=== PATIENT | female | born 2000 | race Hispanic/Latino ===

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

== ENCOUNTER 2024-09-28 23:14 | Emergency (ER) | payer BC, MEDICAID ==
[~2024-09-28] VITALS: Ht 149.9 cm; Wt 90.3 kg
[~2024-09-28 23:14] MED LIST: IBUP-1492 PO; PREN-196 PO
--- NOTE | 2024-09-28 23:28 | NUR ---
PT CARE ASSUMED AT THIS TIME
[2024-09-29 00:34] LABS: APPEARANCE,URINE CLEAR (CLEAR); GLUCOSE, URINE (UA) NEGATIVE (NEGATIVE); LEUKOCYTE ESTERASE ,URINE NEGATIVE Leu/uL (NEGATIVE); NITRATE,URINE NEGATIVE (NEGATIVE); OCCULT BLOOD,URINE MODERATE (NEGATIVE)
[2024-09-29 00:36] LABS: ADD UA MICROSCOPIC YES
[2024-09-29 00:37] LABS: HCG,QUALITATIVE URINE NEGATIVE (NEGATIVE)
[2024-09-29 00:43] LABS: CREATININE 0.7 mg/dL (0.5-1.0); GLOMERULAR FILTR. RATE CALC 122.0 mL/min (>90); GLUCOSE,RANDOM 109.0 mg/dL (70-105); SODIUM SERUM 142.0 mmol/L (136-145); UREA NITROGEN, BLOOD 14.0 mg/dL (7-18)
[2024-09-29 00:46] LABS: IMMATURE GRANULOCYTE ABSOLUTE 0.03 K/uL (0-1); NUCLEATED RED BLOOD CELLS 0.0 % (0.0-0.19); PLATELET COUNT (AUTO) 282 K/uL (130-400); RED BLOOD CELL COUNT(AUTO) 4.10 MIL/uL (4.00-5.50); RED CELL DISTRIBUTION WIDTH 13.1 % (11.0-15.5); SQUAMOUS EPITHELIAL CELL,UR FEW /HPF (0-2); WHITE BLOOD COUNT (AUTO) 10.8 K/uL (4.8-10.8)
[2024-09-29] MEDS: 0.9%NACL 1000ML 1,000 ML IV ONE (01:18)
--- NOTE | 2024-09-29 01:51 | ERN ---
ED Note History of Present Illness Stated Complaint: C/O LEFT FLANK PAIN Chief Complaint: Flank Pain Time Seen by MD: 23:20 Time Seen by Midlevel: 23:20 Dictation: The patient is a 24-year-old female with past medical history of cholecystectomy who presents to the emergency department with complaints of left flank pain. Patient reports that she was seen at [facility] onset Saturday and was diagnosed with a urinary tract infection and kidney stones. Patient reports that her pain is intermediate. Denies any fevers, vomiting or diarrhea Allergies: Coded Allergies: No Allergy Information Available (Verified Allergy, Unknown, 06/06/22) No Known Drug Allergies (Unverified Allergy, Unknown, 06/06/22) Home Meds Reported Medications Ibuprofen (Ibuprofen) 600 Mg Tablet, 600 MG PO Q6H PRN for PAIN, TAB 12/08/21 Vit No.124/Iron/FA ( Vitamin Tablet) 1 Each Tablet, 1 EACH PO DAILY, TAB 12/06/21 Past Medical History Past Medical History: No Pertinent History Surgical History: Unknown RN Note Reviewed/Agreed w/PFSH: Yes Review of System Dictation Constitutional: Negative for fever,chills, and weight loss Eyes: Negative for injury, pain,redness, and discharge ENT: Negative for injury,pain or swelling Cardiovascular: Negative for chest pain, palpitations, and edema Respiratory: Negative for shortness of breath, cough, and wheezing, Abdomen/GI: Negative for abdominal pain, nausea, vomiting, diarrhea, and constipation Back: Negative for injury and pain : Positive for left flank pain MS/Extremity: Negative for injury and deformity Skin: Negative for rash, and discoloration Neuro: Negative for headache, weakness, numbness, tingling, and seizure Psych: Negative for suicide ideation, homicidal ideation, and hallucinations Initial Vital Sign VS Vital Signs Date Time Temp Pulse Resp B/P (MAP) Pulse Ox O2 Delivery O2 Flow Rate FiO2 09/28/24 23:17 98.2 78 20 136/92 99 Room Air 09/28/24 23:28 0 21 Physical Exam Dictation Vital Signs reviewed General Appearance: Alert, oriented x 3, no acute distress, well developed, nourished. Head and Face: non-traumatic. Eyes: PERRL, pink conjunctivas, eyelid no trauma, anterior chamber with arcus senilis. Ears: Pinnas intact and no signs of trauma or erythema ear canals clear and no discharge TM no erythema Nose: No discharge, no bleeding. Oropharynx: Mouth normal, tongue pink. pharynx clear,no erythema, tonsils no exudates, no abscesses noted, mucous membrane moist Neck: Supple, non-tender, no thyromegaly, no masses, no JVD, no bruits Breast:Deferred Chest:No tenderness, no crepitus, no paradoxical movement, no retractions Lungs:Clear, well-ventilated, symmetric, no rales, no wheezing, no rhonchi, no stridor, good breath sounds bilaterally Heart: Regular rate, regular rhythm, no murmur, no gallops Vascular: no peripheral edema, Abdomen: Soft, positive bowel sounds, nondistended, no guarding, nontender, no rebound, no masses no hepatomegaly, no splenomegaly, no Barbosa's sign, no hernias. Rectal: Deferred Genital: Deferred Neurological: Normal speech, motor function intact, sensory function intact Musculoskeletal: Neck nontender, full range of motion, back nontender, full range of motion, Extremities: nontender, full range of motion Skin: Color pink, dry, no turgor, no rash, no lacerations, no abrasions, no contusions. Lymphatic: Deferred Results (Laboratory/Radiology) Laboratory/Radiology Laboratory Tests Test 09/29/24 00:23 White Blood Count 10.8 K/uL (4.8-10.8) Red Blood Count 4.10 MIL/uL (4.00-5.50) Hemoglobin 11.6 g/dL (12.0-16.0) L Hematocrit 36.2 % (36-48) Mean Corpuscular Volume 88.3 fL (79-99) Mean Corpuscular Hemoglobin 28.3 pg (27.0-33.0) Mean Corpuscular Hemoglobin Concent 32.0 g/dL (32.0-36.0) Red Cell Distribution Width 13.1 % (11.0-15.5) Platelet Count 282 K/uL (130-400) Mean Platelet Volume 9.7 fL (7.5-10.5) Immature Granulocyte % (Auto) 0.3 % (0-1) Neutrophils (%) (Auto) 65.0 % (40.0-77.0) Lymphocytes (%) (Auto) 26.7 % (21.0-51.0) Monocytes (%) (Auto) 5.7 % (3.0-13.0) Eosinophils (%) (Auto) 1.8 % (0.0-8.0) Basophils (%) (Auto) 0.5 % (0.0-5.0) Neutrophils # (Auto) 7.0 K/uL (1.8-7.7) Lymphocytes # (Auto) 2.9 K/uL (1.0-4.8) Monocytes # (Auto) 0.6 K/uL (0.1-1.0) Eosinophils # (Auto) 0.19 K/uL (0.00-0.70) Basophils # (Auto) 0.05 K/uL (0.00-0.20) Absolute Immature Granulocyte (auto 0.03 K/uL (0-1) Nucleated Red Blood Cells 0.0 % (0.0-0.19) Urine Color LIGHT-YELLOW (YELLOW) Urine Appearance CLEAR (CLEAR) Urine pH 6.0 (5.0-8.0) Urine Specific Driscoll 1.026 (1.001-1.031) Urine Protein NEGATIVE mg/dL (NEGATIVE) Urine Glucose (UA) NEGATIVE mg/dL (NEGATIVE) Urine Ketones NEGATIVE mg/dL (NEGATIVE) Urine Occult Blood MODERATE (NEGATIVE) H Urine Nitrate NEGATIVE (NEGATIVE) Urine Bilirubin NEGATIVE mg/dL (NEGATIVE) Urine Urobilinogen 0.2 mg/dL (0.2-1.0) Urine Leukocyte Esterase NEGATIVE Chau/uL Urine RBC TNTC /HPF (0-1) H Urine WBC 2-5 /HPF (0-1) H Urine Squamous Epithelial Cells FEW /HPF (0-2) Urine Bacteria FEW /HPF (None Seen) Urine HCG, Qualitative NEGATIVE (NEGATIVE) Sodium Level 142 mmol/L (136-145) Potassium Level 3.8 mmol/L (3.5-5.1) Chloride Level 107 mmol/L (101-111) Carbon Dioxide Level 26 mmol/L (21-32) Blood Urea Nitrogen 14 mg/dL (7-18) Creatinine 0.7 mg/dL (0.5-1.0) Glomerular Filtration Rate Calc 122 mL/min (>90) Random Glucose 109 mg/dL (70-105) H Total Calcium 8.4 mg/dL (8.5-10.1) L REASON: left flank pain ORDERING PHYSICIAN: JADA ALCAZAR PROCEDURE: RENAL - US RENAL SONOGRAM EXAM: Ultrasound Retroperitoneum CLINICAL HISTORY: Left flank pain TECHNIQUE: Real-time ultrasound of the retroperitoneum with image documentation. COMPARISON: None provided. FINDINGS: RIGHT KIDNEY: The right kidney measures 10.1 x 4.8 x 4.5 cm Normal echogenicity and renal contours No renal mass or calculus No hydronephrosis LEFT KIDNEY: The left kidney measures 11.5 x 6.0 x 4.6 cm Echogenic foci suspicious for possible nephrolithiasis: Superior pole: 3 x 6 x 4 mm echogenic focus with posterior shadowing Mid pole: 4 x 4 x 4 mm echogenic focus Mild hydronephrosis on the left side. No discrete renal mass URINARY BLADDER: Wall thickness: 2 mm Otherwise unremarkable IMPRESSION: Possible nephrolithiasis in the left kidney at the superior and mid poles. Mild hydronephrosis on the left side. /[facility] Labs Reviewed?: Yes ED Course ED Course Orders Procedure Category Date Status Time Cbc With Differential LAB 09/28/24 Complete 23:33 ,Urine Test LAB 09/28/24 Complete 23:33 Urinalysis Profile LAB 09/28/24 Complete 23:33 0.9%Nacl 1000ml (Ns PHA 09/29/24 Complete 1000ml) 00:00 Morphine 4mg Syg PHA 09/29/24 Complete (Morphine 4mg Syg) 00:00 Ondansetron 4mg Inj PHA 09/29/24 Complete (Zofran 4mg Inj) 00:00 Basic Metabolic Panel LAB 09/28/24 Complete 23:33 Us Renal Sonogram US 09/29/24 Resulted 00:38 Current Medications Medications (Trade) Dose Ordered Sig/Bora Route PRN Reason Start Time Stop Time Status Last Admin Dose Admin Morphine Sulfate (morPHINE 4MG SYG) 4 mg ONCE ONCE IVP 09/29/24 00:00 09/29/24 00:01 DC 09/29/24 01:17 Ondansetron HCl (zoFRAN 4MG INJ) 4 mg ONCE ONCE IVP 09/29/24 00:00 09/29/24 00:01 DC 09/29/24 01:17 Sodium Chloride 1,000 ml @ 0 mls/hr ONCE ONCE IV 09/29/24 00:00 09/29/24 00:01 DC 09/29/24 01:18 Vital Signs Date Time Temp Pulse Resp B/P (MAP) Pulse Ox O2 Delivery O2 Flow Rate FiO2 09/28/24 23:28 98.4 74 17 120/62 98 Room Air* 0 21 09/28/24 23:17 98.2 78 20 136/92 99 Room Air Medical Decision Making MDM The patient is a 24-year-old female with past medical history of cholecystectomy who presents to the emergency department with complaints of left flank pain. Patient reports that she was seen at [facility] onset Saturday and was diagnosed with a urinary tract infection and kidney stones. Patient reports that her pain is intermediate. Denies any fevers, vomiting or diarrhea CBC showed no leukocytosis, mild normocytic anemia, chemistry showed no electrolyte imbalance, normal renal function, urinalysis negative for leukocyte esterase or nitrites. Ultrasound revealed mild hydronephrosis. On physical exam patient is in no acute distress, patient reports feeling better after medication. Patient instructed to follow up with Urology. Patient currently taking Augmentin at home. Instructed to continue taking medication. Differential diagnosis: Kidney stone, UTI, pyelonephritis, dehydration, electrolyte imbalance Need for hospitalization: Patient does not meet criteria for hospitalization. There are no social concerns with this patient. DX & DISP Disposition: Discharge Departure Impression: Primary Impression: Left renal stone Additional Impressions: Hydronephrosis, left, Flank pain Condition: Stable Additional Instructions: Your labs were unremarkable. Continue oral hydration at home. Please follow up with your primary doctor in 1-2 days. Follow up with urologist. If anything worsens please return to ER. FOLLOW-UP WITH PRIMARY CARE PROVIDER IN 1 TO 2 DAYS. TAKE MEDICATIONS DIRECTED HERE IN THE EMERGENCY ROOM. OKAY TO CONTINUE HOME MEDICATIONS UNLESS OTHERWISE DISCUSSED DURING YOUR VISIT IN THE EMERGENCY ROOM TODAY. RETURN TO YOUR NEAREST EMERGENCY ROOM IF SYMPTOMS WORSEN OR IF THERE IS NO IMPROVEMENT. CALL 911 IF YOU NEED IMMEDIATE ASSISTANCE. TAKE TYLENOL KNHS-[id number]-COCDEAB NEEDED AND IF NO CONTRAINDICATIONS ARE PRESENT. INCREASE ORAL HYDRATION. A WOUND CULTURE OR URINE CULTURE WAS ORDERED HERE IN THE EMERGENCY ROOM DEPARTMENT PLEASE FOLLOW-UP WITH PRIMARY CARE PROVIDER AND ADVISE THEM TO GET REPEAT PORTS FROM OUR FACILITY. IF YOU HAD ANY RANDAL WRAP/SPLINTS THAT WERE APPLIED HERE, PLEASE DO NOT REMOVE THEM UNTIL YOU SEE YOUR PRIMARY CARE OR SPECIALTY. Referrals: KHURRAM PALACIO MD (PCP) SAMEER BRODERICK MD Time of Disposition: 02:12 I have reviewed the case, and I agree with, Diagnosis and Plan JADA ALCAZAR [facility] Sep 29, 2024 01:51
--- NOTE | 2024-09-29 02:06 | HMCIMG ---
EXAM: Ultrasound Retroperitoneum CLINICAL HISTORY: Left flank pain TECHNIQUE: Real-time ultrasound of the retroperitoneum with image documentation. COMPARISON: None provided. FINDINGS: RIGHT KIDNEY: The right kidney measures 10.1 x 4.8 x 4.5 cm Normal echogenicity and renal contours No renal mass or calculus No hydronephrosis LEFT KIDNEY: The left kidney measures 11.5 x 6.0 x 4.6 cm Echogenic foci suspicious for possible nephrolithiasis: Superior pole: 3 x 6 x 4 mm echogenic focus with posterior shadowing Mid pole: 4 x 4 x 4 mm echogenic focus Mild hydronephrosis on the left side. No discrete renal mass URINARY BLADDER: Wall thickness: 2 mm Otherwise unremarkable IMPRESSION: Possible nephrolithiasis in the left kidney at the superior and mid poles. Mild hydronephrosis on the left side. /[place]
[2024-09-29 03:07] VITALS: BP 113/54; PULSE 70; RESP 15; TEMP 98.7; O2SAT 98
== END 2024-09-29 03:19 | disposition home or self-care (01) ==
LOC: EDH 23:14
DX: N13.2 Hydronephrosis with renal and ureteral calculous obstruction (principal); Z79.899 Other long term (current) drug therapy
CPT/HCPCS: 99284; 80048; 85025; 81001; 81025; 36415; 96374; 76770; 96361; 96375; J1885; J7030; J2405; J2270